=== PATIENT | female | born 1960 | race Caucasian/White ===

== ENCOUNTER → 2017-08-09 | Outpatient (CLI) | payer OTHER, BC ==
[~2017-08-09] MED LIST: ASPIRIN325 MG PO; ASPIRIN81 M2 PO; CEFDINIR300 MG PO; HYDROCHLOROTH12.5 M3 PO; HYDROCHLOROTHIA25 MG PO; LEXAPRO20 MG PO; NEXIUM40 MG PO; OXYCODONE HCL20 M1 PO; PERCOCET 10-321 EACH PO; STOOL SOFTENER100 MG PO; TARKA PO; TOPAMAX50 MG PO; VICODIN ES 7.51 EAC1 PO
[2017-08-09 16:55] LABS: CSF PROTEIN 52 mg/dL (15-45)
[2017-08-09 17:00] LABS: GLUCOSE, CSF 70 mg/dL (40-80)
[2017-08-09 17:01] LABS: APPEARANCE CLEAR/COLORLESS; CSF TUBE NUMBER TUBE #3; RED CELL COUNT 1 /MM^3 (0-1); WHITE CELL COUNT 1 /MM^3 (0-5)
[2017-08-09 17:02] LABS: CSF EOSINOPHILS ND % (0-25); MONONUCLEAR WBC'S ND % (50-90); POLYNUCLEAR WBC'S ND % (0-3)
[2017-08-11 01:57] LABS: HSV CSF Spec Source CSF (())
[2017-08-11 11:15] LABS: Flow Clinical Information NOT PROVIDED (()); Flow Number of Markers 14 (()); Flow Spec Viability 7 % (()); Flow Specimen Type CSF (())
== END | disposition home or self-care (01) ==
LOC: RAD 14:49
PROC: 009U3ZZ Drainage of Spinal Canal, Percutaneous Approach (ICD-10-PCS; principal; 2017-08-09)
DX: R56.9 Unspecified convulsions (principal); M06.9 Rheumatoid arthritis, unspecified
CPT/HCPCS: 62270; 77002; 82040 90; 82042 90; 82784 90; 82945; 83916 90; 84157; 86617 90; 86618 90; 86664; 86665; 87070; 87205; 87529 90; 89051